=== PATIENT | male | born 1970 | race Caucasian/White ===

== ENCOUNTER 2016-07-07 01:06 | Emergency (ER) | payer MEDICAID ==
[2016-07-07 01:30] LABS: % IMMATURE GRANULYOCYTES 0.3 % (0.0-1.1); ABSOLUTE IMMATURE GRANULOCYTES 0.02 10^3/uL (0.00-0.10); ADD DIFF? NO; ADD MORPH? NO; ADD SCAN? NO; ATYPICAL LYMPHOCYTE FLAG 10 (0-99); FRAGMENT RBC FLAG 0 (0-99); HEMATOCRIT 43.5 % (40.0-51.0); LEFT SHIFT FLG 0 (0-99); LIPEMIA HEMOLYSIS FLAG 90 (0-99); MEAN CELL HEMOGLOBIN 33.6 pg (27.9-34.1); MEAN CELL HEMOGLOBIN CONCENTR. 34.5 g/dL (32.4-36.7); MEAN CELL VOLUME 97.5 fL (81.5-99.8); MEAN PLATELET VOLUME 8.9 fL (8.7-11.7); PLATELET CLUMPS FLAG 10 (0-99); PLATELET COUNT 120 10^3/uL (150-400); RED BLOOD CELL COUNT 4.46 10^6/uL (4.40-6.38); RED CELL DISTRIBUTION WIDTH 13.2 % (11.5-15.2)
--- NOTE | 2016-07-07 01:40 | CPEKG ---
Heart Rate: 71 RR Interval: 845 P-R Interval: 144 QRSD Interval: 106 QT Interval: 436 QTC Interval: 474 P [place]: 60 QRS [place]: 95 T Wave [place]: 53 EKG Severity - NORMAL ECG - EKG Impression: SINUS RHYTHM Electronically Signed By: Isabella oBurne 07-Jul-2016 21:20:14
[2016-07-07 01:44] LABS: ANION GAP 17 mEq/L (8-16); CALCIUM 9.5 mg/dL (8.5-10.4); CARBON DIOXIDE 26 mEq/l (22-31); CHLORIDE 105 mEq/L (97-110); CREATININE 0.8 mg/dL (0.7-1.3); GLOMERULAR FILTRATION RATE > 60; GLUCOSE 90 mg/dL (70-100); POTASSIUM 3.6 mEq/L (3.5-5.2); SODIUM 148 mEq/L (134-144)
[2016-07-07 01:55] LABS: TROPONIN I < 0.012 ng/mL (0-0.034)
[2016-07-07 01:57] LABS: ETHANOL SERUM 486 mg/dL (0-10)
--- NOTE | 2016-07-07 02:34 | EDPHY ---
H & P Stated Complaint: CP - Personal History Current Tetanus/Diphtheria Vaccine: Yes Current Tetanus Diphtheria and Acellular Pertussis (TDAP): Yes Tetanus Vaccine Date: 2013 - Medical/Surgical History Hx Asthma: No Hx Chronic Respiratory Disease: No Hx Diabetes: No Hx Cardiac Disease: Yes Hx Renal Disease: No Hx Cirrhosis: No Hx Alcoholism: Yes Hx HIV/AIDS: No Hx Splenectomy or Spleen Trauma: No Other PMH: hcv, sbo, [place], CVA at 23yo, seizure disorder - Social History Smoking Status: Current every day smoker HPI/ROS: Chief complaint: Alcohol intoxication History of present illness: This is a 46-year-old male brought to the emergency department by EMS for alcohol intoxication. Patient apparently complained of chest pain to EMS. However on my evaluation patient denies chest pain. He states all of his fingers are tingling in both hands. He denies other associated signs or symptoms. He is heavily intoxicated, he does converse with me but will ultimately start rambling and not hold a logical conversation Review of systems: Unable to obtain secondary level of intoxication (Navid Barton ) - Physical Exam Exam: General Appearance: Alert. Eyes: Pupils equal and round no pallor or injection. ENT, Mouth: Mucous membranes moist. Respiratory: There are no retractions, lungs are clear to auscultation. Cardiovascular: Regular rate and rhythm. Gastrointestinal: Abdomen is soft and non tender, no masses, bowel sounds normal. Neurological: Alert. Strength and sensation intact and symmetrical. Skin: Warm and dry, no rashes. Musculoskeletal: Neck is supple non tender. Extremities are symmetrical, full range of motion. Psychiatric: No agitation. (Navid Barton) Constitutional: Initial Vital Signs Temperature (C) 36.4 C 07/07/16 01:22 Heart Rate 84 07/07/16 01:22 Respiratory Rate 18 07/07/16 01:22 Blood Pressure 130/85 H 07/07/16 01:22 O2 Sat (%) 95 07/07/16 01:22 O2 Delivery Mode Room Air Allergies/Adverse Reactions: amoxicillin Allergy (Verified 07/07/16 01:19) Penicillins Allergy (Verified 07/07/16 01:19) Home Medications: Medication Instructions Recorded Phenytoin Sodium Extended 200 mg PO TID 10/17/13 [Dilantin (RX)] Medical Decision Making ED Course/Re-evaluation: PHYSICIAN DOCUMENTATION: The patient was evaluated and managed by the Physician Computer Networking Instructor. My co- signature indicates that I have reviewed this chart and I agree with the findings and plan of care as documented. I am the secondary supervising physician. 5:40 a.m.- Patient is now more awake and alert. He is able to walk to the bathroom without difficulty. He does not have any complaints. He will be discharged from the emergency room. (Maryanne Bella) Patient is seen under the supervision of my secondary supervising physician Dr. Maryanne Bella. Patient presents to the emergency department by EMS clearly intoxicated. He complained of chest pain to EMS but denied to me. He complained of paresthesias in all of his fingers. Vital signs are stable. Physical exam is benign. Blood studies, EKG and chest x-ray unremarkable. Patient will be allowed to sober up in the emergency room, he will be re- evaluated before discharge. Care of patient turned over to my attending physician Dr. Bella. (Navid Barton) - Data Points Laboratory Results: Laboratory Results 07/07/16 01:15 07/07/16 01:15 Departure - Departure Disposition: Home, Routine, Self-Care Clinical Impression: Alcoholic intoxication Qualifiers: Complication of substance-induced condition: uncomplicated Qualified Code(s): F10.120 - Alcohol abuse with intoxication, uncomplicated Condition: Good Instructions: Alcohol Intoxication (ED) Additional Instructions: Follow-up with a primary care doctor for recheck Stop drinking alcohol If symptoms worsen or new symptoms develop return to the emergency room for recheck Referrals: Patient,NotPresent [Unknown] - As per Instructions [facility],. [Clinic] - As per Instructions
[2016-07-07 05:57] VITALS: BP 117/80; PULSE 100; RESP 15; TEMP 97.3; O2SAT 93
== END 2016-07-07 05:54 | disposition home or self-care (01) ==
LOC: EDBD → EDUNIT#
DX: F10.120 Alcohol abuse with intoxication, uncomplicated (principal); F17.200 Nicotine dependence, unspecified, uncomplicated; I25.2 Old myocardial infarction; Z86.73 Personal history of transient ischemic attack (TIA), and cerebral infarction without residual deficits
CPT/HCPCS: G0480

== ENCOUNTER 2016-07-09 22:39 | Emergency (ER) | payer MEDICAID ==
[2016-07-09] MEDS ORDERED: MAG HYDROX/AL HYDROX/SIMETH 30 ML UDCUP PO ONE (22:49)
[2016-07-09] MEDS ORDERED: LIDOCAINE 2% VISCOUS 15 ML UDCUP PO ONE (22:49)
[2016-07-09 22:57] VITALS: RESP 16; O2SAT 94
--- NOTE | 2016-07-09 23:05 | CPEKG ---
Heart Rate: 73 RR Interval: 822 P-R Interval: 140 QRSD Interval: 98 QT Interval: 428 QTC Interval: 472 P [place]: 54 QRS [place]: 96 T Wave [place]: 64 EKG Severity - ABNORMAL ECG - EKG Impression: SINUS RHYTHM EKG Impression: PROBABLE RIGHT VENTRICULAR HYPERTROPHY Electronically Signed By: Serg Hendrickson 10-Jul-2016 05:08:34
--- NOTE | 2016-07-09 23:26 | EDPHY ---
H & P Stated Complaint: cp Time Seen by Provider: 07/09/16 22:46 HPI/ROS: Chief complaint: Chest pain HPI: 46-year-old intoxicated homeless male being brought in by EMS from the [facility] complaining of upper abdominal pain which began approximately 2 hours prior to presentation. Patient was seen 2 days ago for similar symptoms and had a negative workup. Patient states that he has been drinking is large amounts of alcohol today. No nausea or vomiting. No shortness of breath that has had a mildly productive cough of greenish sputum. No hematemesis. No melena. Patient also states that he has a history of seizure disorder is not had taken his medications for 2 weeks. ROS: 10 point Review of Systems is negative except as noted in the HPI. Past medical history: Seizure disorder Schizoaffective disorder Medications: Dilantin 300 mg twice daily Seroquel 200 mg at night Allergies: Penicillin and amoxicillin Physical exam: Gen: Awake, Alert, No Distress HEENT: Nose: no rhinorrhea Eyes: PERRLA, EOMI Mouth: Moist mucosa Neck: Supple, no JVD Chest: nontender, lungs clear to auscultation Heart: S1, S2 normal, no murmur Abd: Soft, his epigastric tenderness reproducing his presenting complaint, no guarding Back: no CVA tenderness, no midline tenderness Ext: no edema, non-tender Skin: no rash Neuro: CN II-XII intact, Sensation grossly intact, Strength 5/5 in bilateral upper and lower extremities - Personal History Current Tetanus/Diphtheria Vaccine: Yes Current Tetanus Diphtheria and Acellular Pertussis (TDAP): Yes Tetanus Vaccine Date: 2013 - Medical/Surgical History Hx Asthma: No Hx Chronic Respiratory Disease: No Hx Diabetes: No Hx Cardiac Disease: Yes Hx Renal Disease: Yes Hx Cirrhosis: No Hx Alcoholism: Yes Hx HIV/AIDS: No Hx Splenectomy or Spleen Trauma: No Other PMH: hcv, sbo, [place], CVA at 23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, seizure disorder - Social History Smoking Status: Current every day smoker Constitutional: Initial Vital Signs Temperature (C) 36.7 C 07/09/16 22:55 Heart Rate 86 07/09/16 22:55 Respiratory Rate 16 07/09/16 22:55 Blood Pressure 117/73 07/09/16 22:55 O2 Sat (%) 94 07/09/16 22:55 O2 Delivery Mode Room Air Allergies/Adverse Reactions: amoxicillin Allergy (Verified 07/09/16 22:54) Penicillins Allergy (Verified 07/09/16 22:54) Home Medications: Medication Instructions Recorded Phenytoin Sodium Extended 200 mg PO TID 10/17/13 [Dilantin (RX)] Seroquel 07/09/16 Phenytoin Sodium Extended 300 mg PO BID #60 capsule 07/10/16 [Phenytek] QUEtiapine FUMARATE [Seroquel 200 200 mg PO HS #30 tab 07/10/16 mg (*)] Medical Decision Making - Diagnostics EKG Interpretation: EC07/09/2003: Sinus rhythm with normal intervals, no acute ST or T-wave changes. Impression: Normal ECG ED Course/Re-evaluation: I have reviewed the patient's medical records. He was here 2 nights ago and was complaining of similar symptoms. At that time his ECG, chest x-ray. Laboratory evaluations were largely unremarkable. He had a normal troponin. He has a elevated LFTs which are chronic with a near normal lipase. Symptoms tonight are more epigastric rather than thoracic in nature. Will obtain an ECG to make shows no acute findings on it. Will give him a GI cocktail. Given his recent laboratory evaluations from 2 days ago are unchanged in his symptoms only began 2 hours ago I do not suspect an acute change to these. Will treat him with a GI cocktail and reassess and consider adding on other studies if his condition her presentation should change. ECG is normal. Troponin is normal. Lipase is elevated at 700 consistent with acute pancreatitis. Sodium is elevated but this is baseline for him. Plan will be to discharge for outpatient care with instructions to decrease his alcohol consumption. Will give him in-house prescriptions for his Dilantin and Seroquel. Will be referred to follow up as an outpatient at the [facility]. He is clinically sober here. - Data Points Laboratory Results: Laboratory Results 07/09/16 22:50 07/09/16 22:50 Sodium 152 mEq/L H mEq/L (134-144) Potassium 4.3 mEq/L mEq/L (3.5-5.2) Chloride 107 mEq/L mEq/L (97-110) Carbon Dioxide 28 mEq/l mEq/l (22-31) Anion Gap 17 mEq/L H mEq/L (8-16) BUN 7 mg/dL mg/dL (7-23) Creatinine 0.7 mg/dL mg/dL (0.7-1.3) Estimated GFR > 60 Glucose 86 mg/dL mg/dL (70-100) Calcium 9.4 mg/dL mg/dL (8.5-10.4) Total Bilirubin 0.7 mg/dL mg/dL (0.1-1.4) Conjugated Bilirubin 0.5 mg/dL mg/dL (0.0-0.5) Unconjugated Bilirubin 0.2 mg/dL mg/dL (0.0-1.1) AST 115 IU/L H IU/L (17-59) ALT 70 IU/L IU/L (21-72) Alkaline Phosphatase 64 IU/L IU/L (38-126) Troponin I 0.012 ng/mL ng/mL (0-0.034) Total Protein 9.2 g/dL H g/dL (6.3-8.2) Albumin 4.9 g/dL g/dL (3.5-5.0) Lipase 732.0 IU/L H IU/L (23-300) Medications Given: Discontinued Medications Al Hydroxide/Mg Hydroxide (Maalox Susp) 30 ml PO ONCE ONE Stop: 07/09/16 22:50 Last Admin: 07/09/16 23:13 Dose: 30 ml Lidocaine (Lidocaine 2% Viscous) 15 ml PO ONCE ONE Stop: 07/09/16 22:50 Last Admin: 07/09/16 23:13 Dose: 15 ml Departure - Departure Disposition: Home, Routine, Self-Care Clinical Impression: Pancreatitis Condition: Good Instructions: Pancreatitis (ED) Additional Instructions: Follow up with the [facility] in 2-3 days for re-evaluation. Please try to decrease your alcohol consumption. Referrals: NONE *PRIMARY CARE P,. [Primary Care Provider] - As per Instructions [facility] [Outside] - As per Instructions Prescriptions: Phenytoin Sodium Extended [Phenytek] 300 mg PO BID #60 capsule QUEtiapine FUMARATE [Seroquel 200 mg (*)] 200 mg PO HS #30 tab
[2016-07-09 23:49] LABS: ALANINE AMINOTRANSFERASE 70 IU/L (21-72); ALBUMIN 4.9 g/dL (3.5-5.0); ALKALINE PHOSPHATASE 64 IU/L (38-126); ANION GAP 17 mEq/L (8-16); ASPARTATE AMINOTRANSFERASE 115 IU/L (17-59); BILIRUBIN,TOTAL 0.7 mg/dL (0.1-1.4); BILIRUBIN-CONJUGATED 0.5 mg/dL (0.0-0.5); BILIRUBIN-UNCONJUGATED 0.2 mg/dL (0.0-1.1); CALCIUM 9.4 mg/dL (8.5-10.4); CARBON DIOXIDE 28 mEq/l (22-31); CHLORIDE 107 mEq/L (97-110); CREATININE 0.7 mg/dL (0.7-1.3); GLOMERULAR FILTRATION RATE > 60; GLUCOSE 86 mg/dL (70-100); POTASSIUM 4.3 mEq/L (3.5-5.2); SODIUM 152 mEq/L (134-144); TOTAL PROTEIN 9.2 g/dL (6.3-8.2)
[2016-07-10] MEDS ORDERED: QUEtiapine FUMARATE 200 MG TAB PO SCH
[2016-07-10] MEDS ORDERED: PHENYTOIN SODIUM EXTENDED 100 MG CAP PO SCH
[2016-07-10 00:02] LABS: TROPONIN I 0.012 ng/mL (0-0.034)
[2016-07-10] MEDS ORDERED: PHENYTOIN SODIUM EXTENDED 100 MG CAP PO ONE (00:02)
[2016-07-10 01:36] VITALS: BP 99/68; PULSE 93; TEMP 98.2
== END 2016-07-10 01:36 | disposition home or self-care (01) ==
LOC: EDUNIT#
DX: K85.90 Acute pancreatitis without necrosis or infection, unspecified (principal); I25.2 Old myocardial infarction; F17.200 Nicotine dependence, unspecified, uncomplicated; Z86.73 Personal history of transient ischemic attack (TIA), and cerebral infarction without residual deficits

== ENCOUNTER 2016-07-10 21:54 | Emergency (ER) | payer MEDICAID ==
[2016-07-10 22:01] VITALS: RESP 16
--- NOTE | 2016-07-10 22:09 | CPEKG ---
Heart Rate: 99 RR Interval: 606 P-R Interval: 140 QRSD Interval: 98 QT Interval: 368 QTC Interval: 473 P [place]: 57 QRS [place]: 96 T Wave [place]: 30 EKG Severity - OTHERWISE NORMAL ECG - EKG Impression: SINUS RHYTHM EKG Impression: BORDERLINE RIGHT AXIS DEVIATION Electronically Signed By: Serg Hendrickson 11-Jul-2016 03:04:38
[2016-07-10] MEDS ORDERED: NS 1,000 ML IV ONE (22:10)
--- NOTE | 2016-07-10 22:10 | EDPHY ---
H & P Stated Complaint: CP-EtOH Time Seen by Provider: 07/10/16 21:59 HPI/ROS: Chief complaint: Chest pain, alcohol intoxication HPI: 46-year-old male who is presenting for the 3rd day in a row intoxicated complaining of upper abdominal pain. I saw the patient last night diagnosed him with pancreatitis. Patient denies drinking alcohol today but is slurring his speech is smells strongly of alcohol and is very somnolent but arousable. Per EMS report the patient was found outside of a [employer]. He had called 911 complaining of chest pain. At that time he denied having been in this hospital before. Remainder of history is unobtainable now secondary to the patient's intoxication. ROS: Unobtainable secondary to the patient's intoxication Past medical history: Chronic alcohol abuse Seizure disorder Pancreatitis Medications: Dilantin Seroquel Allergies: Amoxicillin and penicillin Social history: Positive for smoking, positive for alcohol Family history: Noncontributory Physical exam: Gen: Somnolent, arousable, protecting his airway, smells strongly of alcohol HEENT: Nose: no rhinorrhea Eyes: PERRLA, EOMI Mouth: Moist mucosa Neck: Supple, no JVD Chest: nontender, lungs clear to auscultation Heart: S1, S2 normal, no murmur Abd: Soft, epigastric tenderness to palpation reproducing presenting complaint, no right upper quadrant tenderness, no lower abdominal tenderness, no guarding Back: no CVA tenderness, no midline tenderness Ext: no edema, non-tender Skin: no rash Neuro: CN II-XII intact, Sensation grossly intact, Strength 5/5 in bilateral upper and lower extremities - Personal History Current Tetanus Diphtheria and Acellular Pertussis (TDAP): Yes Tetanus Vaccine Date: 2013 - Medical/Surgical History Hx Asthma: No Hx Chronic Respiratory Disease: No Hx Diabetes: No Hx Cardiac Disease: Yes Hx Renal Disease: Yes Hx Cirrhosis: No Hx Alcoholism: Yes Hx HIV/AIDS: No Hx Splenectomy or Spleen Trauma: No Other PMH: hcv, sbo, [place], CVA at 23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, seizure disorder - Social History Smoking Status: Current every day smoker Constitutional: Initial Vital Signs Temperature (C) 36.6 C 07/10/16 21:58 Heart Rate 66 07/10/16 21:58 Respiratory Rate 16 07/10/16 21:58 Blood Pressure 121/74 H 07/10/16 21:58 O2 Sat (%) 91 L 07/10/16 21:58 O2 Delivery Mode Room Air O2 (L/minute) 2 Allergies/Adverse Reactions: amoxicillin Allergy (Verified 07/10/16 21:58) Penicillins Allergy (Verified 07/10/16 21:58) Home Medications: Medication Instructions Recorded Phenytoin Sodium Extended 200 mg PO TID 10/17/13 [Dilantin (RX)] Seroquel 07/09/16 Phenytoin Sodium Extended 300 mg PO BID #60 capsule 07/10/16 [Phenytek] QUEtiapine FUMARATE [Seroquel 200 200 mg PO HS #30 tab 07/10/16 mg (*)] Medical Decision Making ED Course/Re-evaluation: 0415 patient ambulating unassisted to the bathroom. Is currently without complaints. Does not recall presenting to the hospital. Has got some mild epigastric pain right now with a benign exam. Patient was medically clear to go to the [facility] - Data Points Laboratory Results: Laboratory Results 07/10/16 22:20 07/10/16 22:20 07/10/16 07/10/16 22:20 22:20 WBC 4.86 10^3/uL 10^3/uL (3.80-9.50) RBC 4.45 10^6/uL 10^6/uL (4.40-6.38) Hgb 14.7 g/dL g/dL (13.7-17.5) Hct 42.7 % % (40.0-51.0) MCV 96.0 fL fL (81.5-99.8) MCH 33.0 pg pg (27.9-34.1) MCHC 34.4 g/dL g/dL (32.4-36.7) RDW 13.2 % % (11.5-15.2) Plt Count 120 10^3/uL L 10^3/uL (150-400) MPV 8.8 fL fL (8.7-11.7) Neut % (Auto) 46.9 % % (39.3-74.2) Lymph % (Auto) 38.3 % % (15.0-45.0) [place] % (Auto) 11.7 % % (4.5-13.0) Eos % (Auto) 1.0 % % (0.6-7.6) Baso % (Auto) 1.9 % H % (0.3-1.7) Nucleat RBC Rel Count 0.0 % % (0.0-0.2) Absolute Neuts (auto) 2.28 10^3/uL 10^3/uL (1.70-6.50) Absolute Lymphs (auto) 1.86 10^3/uL 10^3/uL (1.00-3.00) Absolute Monos (auto) 0.57 10^3/uL 10^3/uL (0.30-0.80) Absolute Eos (auto) 0.05 10^3/uL 10^3/uL (0.03-0.40) Absolute Basos (auto) 0.09 10^3/uL 10^3/uL (0.02-0.10) Absolute Nucleated RBC 0.00 10^3/uL 10^3/uL (0-0.01) Immature Gran % 0.2 % % (0.0-1.1) Immature Gran # 0.01 10^3/uL 10^3/uL (0.00-0.10) Sodium 148 mEq/L H mEq/L (134-144) Potassium 3.8 mEq/L mEq/L (3.5-5.2) Chloride 105 mEq/L mEq/L (97-110) Carbon Dioxide 26 mEq/l mEq/l (22-31) Anion Gap 17 mEq/L H mEq/L (8-16) BUN 9 mg/dL mg/dL (7-23) Creatinine 0.8 mg/dL mg/dL (0.7-1.3) Estimated GFR > 60 Glucose 126 mg/dL H mg/dL (70-100) Calcium 9.0 mg/dL mg/dL (8.5-10.4) Total Bilirubin 0.6 mg/dL mg/dL (0.1-1.4) Conjugated Bilirubin 0.4 mg/dL mg/dL (0.0-0.5) Unconjugated Bilirubin 0.2 mg/dL mg/dL (0.0-1.1) AST 98 IU/L H IU/L (17-59) ALT 67 IU/L IU/L (21-72) Alkaline Phosphatase 60 IU/L IU/L (38-126) Total Protein 8.3 g/dL H g/dL (6.3-8.2) Albumin 4.5 g/dL g/dL (3.5-5.0) Lipase 622.0 IU/L H IU/L (23-300) Ethyl Alcohol 565 mg/dL H* mg/dL (0-10) Medications Given: Discontinued Medications Sodium Chloride (Ns) 1,000 mls @ 0 mls/hr IV ONCE ONE PRN Reason: Wide [place] Stop: 07/10/16 22:11 Last Admin: 07/10/16 22:37 Dose: 1,000 mls Departure - Departure Disposition: Home, Routine, Self-Care Clinical Impression: Alcohol intoxication, Pancreatitis Condition: Good Instructions: Alcohol Intoxication (ED), Pancreatitis (ED) Additional Instructions: Please try to decrease your alcohol consumption. Referrals: NONE *PRIMARY CARE P,. [Primary Care Provider] - As per Instructions [facility] [Outside] - As per Instructions
[2016-07-10 22:30] LABS: % IMMATURE GRANULYOCYTES 0.2 % (0.0-1.1); ABSOLUTE IMMATURE GRANULOCYTES 0.01 10^3/uL (0.00-0.10); ADD DIFF? NO; ADD MORPH? NO; ADD SCAN? NO; ATYPICAL LYMPHOCYTE FLAG 40 (0-99); FRAGMENT RBC FLAG 0 (0-99); HEMATOCRIT 42.7 % (40.0-51.0); HEMOGLOBIN 14.7 g/dL (13.7-17.5); LEFT SHIFT FLG 0 (0-99); LIPEMIA HEMOLYSIS FLAG 90 (0-99); MEAN CELL HEMOGLOBIN CONCENTR. 34.4 g/dL (32.4-36.7); MEAN PLATELET VOLUME 8.8 fL (8.7-11.7); PLATELET CLUMPS FLAG 10 (0-99); PLATELET COUNT 120 10^3/uL (150-400); RED BLOOD CELL COUNT 4.45 10^6/uL (4.40-6.38); RED CELL DISTRIBUTION WIDTH 13.2 % (11.5-15.2)
[2016-07-10 22:40] LABS: ALANINE AMINOTRANSFERASE 67 IU/L (21-72); ALBUMIN 4.5 g/dL (3.5-5.0); ALKALINE PHOSPHATASE 60 IU/L (38-126); ANION GAP 17 mEq/L (8-16); ASPARTATE AMINOTRANSFERASE 98 IU/L (17-59); BILIRUBIN,TOTAL 0.6 mg/dL (0.1-1.4); BILIRUBIN-CONJUGATED 0.4 mg/dL (0.0-0.5); BILIRUBIN-UNCONJUGATED 0.2 mg/dL (0.0-1.1); CARBON DIOXIDE 26 mEq/l (22-31); CHLORIDE 105 mEq/L (97-110); CREATININE 0.8 mg/dL (0.7-1.3); GLOMERULAR FILTRATION RATE > 60; GLUCOSE 126 mg/dL (70-100); POTASSIUM 3.8 mEq/L (3.5-5.2); SODIUM 148 mEq/L (134-144); TOTAL PROTEIN 8.3 g/dL (6.3-8.2)
[2016-07-10 22:50] LABS: ETHANOL SERUM 565 mg/dL (0-10)
[2016-07-11] MEDS ORDERED: HYDROmorphONE/DILAUDID 1 MG/ML SYR ONE (01:16)
[2016-07-11] MEDS ORDERED: ONDANSETRON 4 MG/2 ML VIAL ONE (01:17)
[2016-07-11] MEDS ORDERED: CHLORDIAZEPOXIDE 25MG PREPK#6 BTL TAKEHOME ONE (04:20)
[2016-07-11 04:24] VITALS: TEMP 98.2
[2016-07-11 04:40] VITALS: BP 114/74; PULSE 81; O2SAT 92
== END 2016-07-11 04:40 | disposition home or self-care (01) ==
LOC: EDUNIT#
DX: K85.90 Acute pancreatitis without necrosis or infection, unspecified (principal); F10.129 Alcohol abuse with intoxication, unspecified; I25.2 Old myocardial infarction; F17.200 Nicotine dependence, unspecified, uncomplicated; Z86.73 Personal history of transient ischemic attack (TIA), and cerebral infarction without residual deficits
CPT/HCPCS: G0480; J1170; J2405

== ENCOUNTER 2016-07-12 19:26 | Emergency (ER) | payer MEDICAID ==
[2016-07-12 19:35] VITALS: BP 132/86; PULSE 81; RESP 16; TEMP 97.7; O2SAT 98
--- NOTE | 2016-07-12 20:56 | EDPHY ---
H & P Time Seen by Provider: 07/12/16 20:25 HPI/ROS: CHIEF COMPLAINT: "Trench foot" HISTORY OF PRESENT ILLNESS: The patient is a 46-year-old male, homeless, who presents to the emergency department with pain in his right foot. He states he has "trenchfoot." He states that his foot was wet for an extended period time. His pain is moderate. It does not radiate up his leg. No fevers or chills. REVIEW OF SYSTEMS: My complete review of systems is negative except as mentioned in the HPI. Past Medical/Surgical History: Includes small bowel obstruction, ACS, acute VT, CVA, seizure disorder, hepatitis-C Smoking Status: Current every day smoker Physical Exam: Vitals noted. Afebrile. General Appearance: Alert and no distress. Head: Pupils equal. Normal. Respiratory: No respiratory distress. Cardiac: regular rate and rhythm. Extremities: patient's right foot has some mild discoloration around the toes. There is cap refill. Has sensation is intact distally. He does have some mild skin peeling. There is no warmth or erythema. No extension up the leg. Skin: No rashes or lesions. Neuro: Alert. Normal mood and affect. Constitutional: Initial Vital Signs Temperature (C) 36.5 C 07/12/16 19:34 Heart Rate 81 07/12/16 19:34 Respiratory Rate 16 07/12/16 19:34 Blood Pressure 132/86 H 07/12/16 19:34 O2 Sat (%) 98 07/12/16 19:34 O2 Delivery Mode Room Air Allergies/Adverse Reactions: amoxicillin Allergy (Verified 07/12/16 20:25) Penicillins Allergy (Verified 07/12/16 20:25) Home Medications: Medication Instructions Recorded Phenytoin Sodium Extended 200 mg PO TID 10/17/13 [Dilantin (RX)] Seroquel 07/09/16 Phenytoin Sodium Extended 300 mg PO BID #60 capsule 07/10/16 [Phenytek] QUEtiapine FUMARATE [Seroquel 200 200 mg PO HS #30 tab 07/10/16 mg (*)] Medical Decision Making ED Course/Re-evaluation: In the emergency department I discussed possible etiologies with the patient. Patient's foot was cleaned. He was given bacitracin if he has any areas of blisters. He will follow up with the [facility]. He is given warnings prior to leaving. Differential Diagnosis: My differential includes but is not limited to skin breakdown, cellulitis, abscess, trenchfoot, frostbite, mireles nip Departure - Departure Disposition: Home, Routine, Self-Care Clinical Impression: Foot abrasion Qualifiers: Encounter type: initial encounter Laterality: right Qualified Code(s): S90.811A - Abrasion, right foot, initial encounter Condition: Good Instructions: Blister (ED) Referrals: [facility] [Other] - As per Instructions [facility],. [Clinic] - As per Instructions
== END 2016-07-12 20:56 | disposition home or self-care (01) ==
LOC: EDUNIT#
DX: S90.811A Abrasion, right foot, initial encounter (principal); F17.200 Nicotine dependence, unspecified, uncomplicated; I25.2 Old myocardial infarction; Z86.73 Personal history of transient ischemic attack (TIA), and cerebral infarction without residual deficits; X31.XXXA Exposure to excessive natural cold, initial encounter

== ENCOUNTER 2016-07-12 22:29 | Emergency (ER) | payer MEDICAID ==
[2016-07-12 22:40] VITALS: RESP 16; TEMP 98.2
--- NOTE | 2016-07-12 23:19 | EDPHY ---
H & P Stated Complaint: sneezed tonight and nose bleed after; coumadin? Time Seen by Provider: 07/12/16 23:14 HPI/ROS: CHIEF COMPLAINT: Epistaxis HISTORY OF PRESENT ILLNESS: Patient is a 46-year-old man who comes to the emergency department complaining of a nosebleed. It actually stopped before he got here. He states that it began when he sneezed hard. He takes Coumadin. He states that his INR was appropriate levels last time was checked. He is declining blood draws. He is asking for a bus pass to get to [place]. REVIEW OF SYSTEMS: Constitutional: denies: chills, fever, recent illness, recent injury EENTM: See HPI Respiratory: denies: cough, shortness of breath Cardiac: denies: chest pain, irregular heart rate, lightheadedness, palpitations Gastrointestinal/Abdominal: denies: abdominal pain, diarrhea, nausea, vomiting, blood streaked stools Genitourinary: denies: dysuria, frequency, hematuria, pain Musculoskeletal: denies: joint pain, muscle pain Skin: denies: lesions, rash, jaundice, bruising Neurological: denies: headache, numbness, paresthesia, tingling, dizziness, weakness Hematologic/Lymphatic: denies: blood clots, easy bleeding, easy bruising Immunologic/allergic: denies: HIV/AIDS, transplant EXAM: GENERAL: Well-appearing, well-nourished and in no acute distress. HEAD: Atraumatic, normocephalic. EYES: Pupils equal round and reactive to light, extraocular movements intact, sclera anicteric, conjunctiva are normal. ENT: Dry blood in left nares, TMs normal, nares patent, oropharynx clear without exudates. Moist mucous membranes. NECK: Normal range of motion, supple without lymphadenopathy or JVD. LUNGS: Breath sounds clear to auscultation bilaterally and equal. No wheezes rales or rhonchi. HEART: Regular rate and rhythm without murmurs, rubs or gallops. ABDOMEN: Soft, nontender, normoactive bowel sounds. No guarding, no rebound. No masses appreciated. BACK: No CVA tenderness, no spinal tenderness, step-offs or deformities EXTREMITIES: Normal range of motion, no pitting or edema. No clubbing or cyanosis. NEUROLOGICAL: Cranial nerves II through XII grossly intact. Normal speech, normal gait. 5/5 strength, normal movement in all extremities, normal sensation PSYCH: Normal mood, normal affect. SKIN: Warm, dry, normal turgor, no visible rashes or lesions. Source: Patient Exam Limitations: No limitations - Personal History Current Tetanus/Diphtheria Vaccine: Yes Current Tetanus Diphtheria and Acellular Pertussis (TDAP): Yes Tetanus Vaccine Date: 2013 - Medical/Surgical History Hx Asthma: No Hx Chronic Respiratory Disease: No Hx Diabetes: No Hx Cardiac Disease: Yes Hx Renal Disease: Yes Hx Cirrhosis: No Hx Alcoholism: Yes Hx HIV/AIDS: No Hx Splenectomy or Spleen Trauma: No Other PMH: hcv, sbo, [place], CVA at 23yo, seizure disorder - Family History Significant Family History: No pertinent family hx - Social History Smoking Status: Current every day smoker Alcohol Use: None Drug Use: None Constitutional: Initial Vital Signs Temperature (C) 36.8 C 07/12/16 22:35 Heart Rate 100 07/12/16 22:35 Respiratory Rate 16 07/12/16 22:35 Blood Pressure 133/81 H 07/12/16 22:35 O2 Sat (%) 94 07/12/16 22:35 O2 Delivery Mode Room Air Allergies/Adverse Reactions: amoxicillin Allergy (Verified 07/12/16 20:25) Penicillins Allergy (Verified 07/12/16 20:25) Home Medications: Medication Instructions Recorded Phenytoin Sodium Extended 200 mg PO TID 10/17/13 [Dilantin (RX)] Seroquel 07/09/16 Phenytoin Sodium Extended 300 mg PO BID #60 capsule 07/10/16 [Phenytek] QUEtiapine FUMARATE [Seroquel 200 200 mg PO HS #30 tab 07/10/16 mg (*)] Warfarin Sodium 07/12/16 Medical Decision Making ED Course/Re-evaluation: The patient's nosebleed stopped prior to arrival. He seems primarily interested in getting a bus pass. I will have him speak with the charge nurse. He declines lab work or INR testing. Differential Diagnosis: Partial list of the Differential diagnosis considered include but were not limited to; epistaxis, malingering, infection, trauma and although unlikely based on the history and physical exam, I also considered head injury, neck injury, intracranial hemorrhage, Coumadin toxicity. I discussed these differential diagnoses and the plan with the patient as well as the usual and expected course. The patient understands that the diagnosis is provisional and that in medicine we are not always correct and that further workup is often warranted. Usual and customary warnings were given. All of the patient's questions were answered. The patient was instructed to return to the emergency department should the symptoms at all worsen or return, otherwise to followup with the physician as we discussed. Departure - Departure Disposition: Home, Routine, Self-Care Clinical Impression: Anterior epistaxis Condition: Good Instructions: Nosebleed (ED) Referrals: [facility] [Other] - As per Instructions
[2016-07-12 23:30] VITALS: BP 133/77; PULSE 74; O2SAT 92
== END 2016-07-12 23:30 | disposition home or self-care (01) ==
DX: R04.0 Epistaxis (principal); I25.2 Old myocardial infarction; F17.200 Nicotine dependence, unspecified, uncomplicated; Z86.73 Personal history of transient ischemic attack (TIA), and cerebral infarction without residual deficits; Z79.01 Long term (current) use of anticoagulants